=== PATIENT | female | born 1995 | race Caucasian/White ===

== ENCOUNTER 2023-03-04 15:29 | Outpatient (CLI) | payer BC, SELFPAY ==
--- NOTE | 2023-03-04 16:00 | CRLHL7_ITS ---
For Patients: As a result of the Century Cures Act, medical imaging exams and procedure reports are released immediately into your electronic medical record. You may view this report before your referring provider. If you have questions, please contact your health care provider. Indication: PALPABLE AREA MID UPPER BACK X 1 YEAR, INCREASING IN SIZE Technique: Grayscale and color Doppler ultrasound of the soft tissues of the upper back performed in the midline. Comparison: None Findings: Complex hypoechoic areas located just beneath the skin with a tract extending into the epidermis. This area measures 3.8 x 2.0 x 4.1 cm. Surrounding vascularity noted. This is located entirely within the subcutaneous fat, superficial to the muscles. Impression: Complex masslike area just beneath the skin measuring 3.8 x 2.0 x 4.1 cm, indeterminate by ultrasound although most likely represents a complex sebaceous/epidermoid cyst. Surgical referral recommended. Dictated by Seferino Mcallister MD @ 03/08/2023 10:15:55 AM (Electronically Signed)
== END 2023-03-04 15:30 | disposition home or self-care (01) ==
PROVIDERS: PCP Physician Assistant; Visit Provider Nurse Practitioner Family
DX: M79.89 Other specified soft tissue disorders (principal)
CPT/HCPCS: 76604

== ENCOUNTER 2024-03-26 08:21 | Outpatient (CLI) | payer OTHER, SELFPAY | END 2024-03-26 08:22 | disposition home or self-care (01) | PROVIDERS: PCP Physician Assistant; Visit Provider Nurse Practitioner Family | DX: L80 Vitiligo (principal); R68.89 Other general symptoms and signs; F32.A Depression, unspecified; F41.9 Anxiety disorder, unspecified; Z13.21 Encounter for screening for nutritional disorder; Z13.6 Encounter for screening for cardiovascular disorders; Z13.1 Encounter for screening for diabetes mellitus; Z13.0 Encounter for screening for diseases of the blood and blood-forming organs and certain disorders involving the immune mechanism; Z13.29 Encounter for screening for other suspected endocrine disorder | CPT/HCPCS: 80061; 82306; 82947; 84443; 85025 ==